=== PATIENT | female | born 1945 | race Caucasian/White ===

== ENCOUNTER → 2024-06-07 | Outpatient (CLI) | payer MEDICARE, OTHER ==
[~2024-06-07] MED LIST: Flonase 0.05% N16 GM; LEVO750 PO
== END ==
LOC: LAB 13:29 → LAB SHORT 13:29
DX: R30.0 Dysuria (principal)
CPT/HCPCS: 87077; 87086; 87186

== ENCOUNTER → 2024-08-24 | Outpatient (CLI) | payer MEDICARE, OTHER | END | disposition home or self-care (01) | LOC: LAB 11:05 → LAB SHORT 11:05 | DX: N39.0 Urinary tract infection, site not specified (principal) | CPT/HCPCS: 87077; 87086; 87186 ==

== ENCOUNTER 2025-01-18 06:12 | Day surgery (SDC) | payer MEDICARE, OTHER ==
[~2025-01-18] VITALS: Ht 165.1 cm; Wt 64.0 kg
[2025-01-18] VITALS (10 sets, daily range): BP systolic 153–214; BP diastolic 75–99
[2025-01-18] MEDS ORDERED: ALLERCLEAR10 MG PO (06:32)
[2025-01-18] MEDS ORDERED: CENTRUM WOMEN1 EAC2 PO (06:33)
[2025-01-18] MEDS ORDERED: PROBIOTIC1 EA15 PO (06:34)
[2025-01-18] MEDS ORDERED: ZINC220 PO (06:34)
[2025-01-18] MEDS ORDERED: NS 1,000 ML IV ONE ×2 (06:36→06:54)
[2025-01-18] MEDS ORDERED: Midazolam HCl 1MG / ML 2ML Vial ONE (06:54)
[2025-01-18] MEDS ORDERED: FentaNYL Citrate 50 MCG/ML 2 ML Injection ONE (06:54)
--- NOTE | 2025-01-18 08:50 | NUR ---
PT TO RECOVERY ROOM POST PROCEDURE. PT DROWSY, BUT ANSWERING QUESTIONS APPROPRIATELY, DENIES PAIN POST PROCEDURE. MONITOR SR 60'S, B/P 209/99, SPO2 98 % RA; PT ASYMPTOMATIC WITH ELEVATED B/P. R FLANK SITE NO SWELLING/HEMATOMA, TELFA AND TEGADERM DRSG INTACT.
--- NOTE | 2025-01-18 09:15 | NUR ---
DR HAY IN TO DISCUSS RESULTS OF PROCEDURE WITH PT AND DAUGHTER. DR HAY UPDATED ON PT'S CONTINUED ELEVATED B/P, ORDERS RECEIVED.
[2025-01-18] MEDS ORDERED: HydrALAZINE HCl 20 MG / ML 1ML Vial ONE (09:26)
--- NOTE | 2025-01-18 09:30 | NUR ---
PT RECEIVED 10 MG IV HYDRALAZINE FOR ELEVATED B/P.
--- NOTE | 2025-01-18 10:55 | NUR ---
PT DRESSED SELF WITHOUT ISSUE, SITE UNCHANGED; IV REMOVED-CANNULA INTACT.
--- NOTE | 2025-01-18 11:02 | NUR ---
PT AND DAUGHTER RECEIVED DISCHARGE INSTRUCTIONS, MED LIST AND AFTER CARE INSTRUCTIONS; VERBALIZED GOOD UNDERSTANDING. PT INSTRUCTED TO CHECK B/P DAILY AND KEEP A JOURNAL TO TAKE TO NEXT APPT WITH PCP; VERBALIZED GOOD UNDERSTANDING. PT LEFT FACILITY VIA AMB PER PT REQUEST, CONDITION STABLE.
== END 2025-01-18 23:00 | disposition home or self-care (01) ==
LOC: MHTC 06:12 → CT 07:00 → MHTC 23:00
DX: N28.89 Other specified disorders of kidney and ureter (principal)
CPT/HCPCS: 50593; 77013; 99152; 99153; C2618; J0360; J2250; J3010; J7030; Q9967